=== PATIENT | female | born 1955 | race Caucasian/White ===

== ENCOUNTER 2018-09-09 18:43 | Emergency (ER) | payer OTHER ==
[2018-09-09 19:11] VITALS: RESP 18; O2SAT 100
[2018-09-09 19:12] VITALS: BMI 19.6
[2018-09-09] MEDS ORDERED: Anusol Suppository PR STA (19:55)
[2018-09-09] MEDS ORDERED: Lidocaine 2% w Epi 1:100,000 Inj IJ STA (19:55)
[2018-09-09] MEDS ORDERED: Oxycodone/Acetaminophen 5/325 mg Tab PO STA (20:01)
[2018-09-09] MEDS ORDERED: Lidocaine 2% w Epi 1:100,000 Inj IJ ONE (20:19)
[2018-09-09] MEDS ORDERED: Anusol Suppository ONE (20:19)
[2018-09-09] MEDS ORDERED: Lidocaine 2% Jelly (Uro-Jet) TOP STA (20:45)
--- NOTE | 2018-09-09 21:03 | ED PDOC ---
HPI: Female Pain Time Seen by Provider: 09/09/18 19:27 Chief Complaint (Nursing): GI Problem Chief Complaint (Provider): GI Problem History Per: Patient History/Exam Limitations: no limitations Onset/Duration Of Symptoms: Days (x3) Current Symptoms Are (Timing): Still Present Additional Complaint(s): 63 year old female presents to the emergency department with a complaint of anus pain for 3 days. Patient states she felt a mass but denies any fever, chills, bleeding, diarrhea, constipation, or taking medication for relief. Past Medical History Reviewed: Historical Data, Nursing Documentation, Vital Signs Vital Signs: Last Vital Signs Temp 98.0 F 09/09/18 19:10 Pulse 90 09/09/18 19:10 Resp 18 09/09/18 19:10 BP 151/67 H 09/09/18 19:10 Pulse Ox 100 09/09/18 19:10 Primary Care Provider: Jeanine Lorenz - Medical History PMH: No Chronic Diseases Denies: Chronic Kidney Disease - Surgical History Surgical History: Appendectomy, Cholecystectomy, - Family History Family History: States: Unknown Family Hx - Immunization History Hx Tetanus Toxoid Vaccination: No Hx Influenza Vaccination: No Hx Pneumococcal Vaccination: No - Home Medications Home Medications: Ambulatory Orders Medication Instructions Recorded Acetaminophen [Tylenol Arthritis] 650 mg PO Q8 #30 tablet.er 12/27/17 Docusate [Colace] 100 mg PO TID PRN #30 cap 12/27/17 Magnesium Citrate [Citrate of Mag] 300 ml PO ONCE PRN #1 bottle 12/27/17 - Allergies Allergies/Adverse Reactions: Allergies Allergy/AdvReac Type Severity Reaction Status Date / Time No Known Allergies Allergy Verified 12/27/17 13:59 Review of Systems ROS Statement: Except As Marked, All Systems Reviewed And Found Negative Constitutional: Negative for: Fever, Chills Gastrointestinal: Positive for: Rectal Pain. Negative for: Diarrhea, Constipation, Hematochezia Physical Exam - Reviewed Nursing Documentation Reviewed: Yes Vital Signs Reviewed: Yes - Physical Exam Appears: Positive for: No Acute Distress, Uncomfortable Cardiovascular/Chest: Positive for: Regular Rate, Rhythm Respiratory: Positive for: Normal Breath Sounds. Negative for: Respiratory Distress Gastrointestinal/Abdominal: Positive for: Normal Exam, Soft. Negative for: Tenderness Rectal: Positive for: Hemorrhoids (1cm externally. traffic control technician Rosalina present as visitor services assistant) - ECG O2 Sat by Pulse Oximetry: 100 (RA) Pulse Ox Interpretation: Normal Medical Decision Making Medical Decision Making: Time: 2009 Initial Plan: Anusol suppository MS and Percocet 5/325mg PO ordered for pain control. Surgery consult initiated for I&D of hemorrhoid. Time: 2022 --Hemorroid I&D easily reducible. Upon provider reevaluation, patient is medically stable, reports improvement in symptoms, and requires no further treatment in the ED at this time. Findings and plan were discussed with patient who verbalizes understanding. Patient will be discharged home. Counseling was provided and all questions were answered regarding diagnosis. There is agreement to discharge plan. Return precautions discussed. Clinical Impression: hemorrhoids Scribe Attestation: Documented by Sylvie Davis, acting as a scribe for Sharifa Meredith MD. Provider Scribe Attestation: All medical record entries made by the Scribe were at my direction and personally dictated by me. I have reviewed the chart and agree that the record accurately reflects my personal performance of the history, physical exam, medical decision making, and the department course for this patient. I have also personally directed, reviewed, and agree with the discharge instructions and disposition. Disposition - Clinical Impression Clinical Impression: Hemorrhoids - Patient ED Disposition Is Patient to be Admitted: No Counseled Patient/Family Regarding: Studies Performed, Diagnosis, Need For Followup, Rx Given - Disposition Disposition: Routine/Home Disposition Time: 20:23 Condition: IMPROVED Forms: [employer] ([place]ican)
[2018-09-09 21:36] VITALS: BP 132/68; PULSE 94; TEMP 98.2
== END 2018-09-09 21:42 | disposition home or self-care (01) ==
LOC: H.ER 18:43
DX: K64.9 Unspecified hemorrhoids (principal)